=== PATIENT | male | born 1970 | race African-American/Black ===

== ENCOUNTER 2020-10-31 22:54 | Emergency (ER) | payer OTHER ==
[~2020-10-31] VITALS: Ht 167.6 cm; Wt 77.1 kg
[2020-10-31 23:48] LABS: ABSOLUTE NEUTROPHILS 3.2 thou/uL (1.4-8.2); BASOPHILS 0.3 % (0.0-2.0); EOSINOPHILS 0.1 % (0.0-3.0); HEMATOCRIT 38.7 % (42.0-52.0); HEMOGLOBIN 13.1 gm/dL (14.0-18.0); LYMPHOCYTES 26.4 % (24.0-44.0); MCH 29.9 pg (26.0-34.0); MCV 88.1 fL (80.0-100.0); MONOCYTES 6.4 % (1.0-8.0); PLATELET COUNT 149 thou/uL (150-400); POLYS 66.8 % (36.0-66.0); RBC 4.39 mil/uL (4.50-6.00); RDW 14.4 % (10.5-14.5); WBC 4.8 thou/uL (4.0-11.0)
[2020-10-31 23:55] LABS: ANION GAP 5 mmol/L (7-16); BUN 16 mg/dL (7-18); CALCIUM 7.8 mg/dL (8.5-10.1); CHLORIDE 104 mmol/L (98-107); CO2 30 mmol/L (21-32); CREATININE 1.7 mg/dL (0.7-1.3); GLUCOSE 103 mg/dL (74-106); POTASSIUM 3.5 mmol/L (3.5-5.1); SODIUM 139 mmol/L (136-145)
[2020-11-01 00:04] LABS: ALBUMIN 3.1 g/dL (3.4-5.0); SGOT 29 U/L (15-37); SGPT 36 U/L (16-63); TOTAL BILIRUBIN 0.4 mg/dL (0.2-1.0); TROPONIN-I <0.06 ng/mL (<0.06)
[2020-11-01] MEDS ORDERED: FAMOTIDINE40 MG PO (00:25)
[2020-11-01] MEDS ORDERED: NORVASC10 MG PO (00:51)
[2020-11-01 00:53] LABS: URINE BILIRUBIN NEGATIVE (Negative); URINE BLOOD 1+ (Negative); URINE CLARITY CLEAR; URINE COLOR YELLOW; URINE GLUCOSE-RANDOM* NEGATIVE (Negative); URINE KETONES NEGATIVE (Negative); URINE LEUKOCYTES-REFLEX NEGATIVE (Negative); URINE NITRITE-REFLEX NEGATIVE (Negative); URINE PROTEIN (DIPSTICK) 2+ (Negative); URINE SPECIFIC GRAVITY >= 1.030 (1.005-1.035)
[2020-11-01 01:01] LABS: BACTERIA-REFLEX None Seen /HPF (None Seen); CASTS None Seen /LPF (None Seen); CRYSTALS None Seen /LPF (None Seen); MUCUS None Seen strn/LPF (None Seen); SQUAMOUS 0-3 Few /LPF (0-3); URINE RBC None Seen /HPF (NONE SEEN); URINE WBC-REFLEX None Seen /HPF (0-5)
[2020-11-01 01:06] VITALS: BP 149/72
--- NOTE | 2020-11-01 12:22 | EKG ---
[address] [address] ELECTROCARDIOGRAM REPORT Name: MARGARITA CAGLEWAYNE [id number] Admission: 10/31/20 Attend Phys: Discharge: 11/01/20 Date of : 70 Report #: [id number] [facility] ED Test Date: 2020-10-31 Test Time: 22:58:59 Pat Name: MARGARITA CAGLE Department: Room: Gender: Nurse Midwife: leandro : 1970 Requested By: Wu Sweet Order Number: [id number] MD: Anupam Briscoe Measurements Intervals [place] Rate: 98 P: 42 MN: 158 QRS: -12 QRSD: 80 T: 133 QT: 342 QTc: 437 Interpretive Statements Sinus rhythm No previous ECG available for comparison Electronically Signed On 11-01-2020 12:22:35 CDT by Anupam Briscoe [email or web address] <ELECTRONICALLY SIGNED> By: Anupam Briscoe MD 11/01/20 1222 2258 [id number] Anupam Briscoe MD /EPI
== END 2020-11-01 01:08 | disposition home or self-care (01) ==
LOC: ER 22:54
PROVIDERS: Emergency Medicine
DX: U07.1 COVID-19 (principal); I10 Essential (primary) hypertension; Z79.899 Other long term (current) drug therapy; Z88.8 Allergy status to other drugs, medicaments and biological substances